=== PATIENT | male | born 1935 | race Caucasian/White ===

== ENCOUNTER → 2019-06-08 | Outpatient (CLI) | payer MEDICARE | END | disposition home or self-care (01) | LOC: CVU 09:19 | PROVIDERS: ATTEND Internal Medicine | DX: J98.11 Atelectasis (principal); J90 Pleural effusion, not elsewhere classified; I25.10 Atherosclerotic heart disease of native coronary artery without angina pectoris; I08.1 Rheumatic disorders of both mitral and tricuspid valves; Z95.1 Presence of aortocoronary bypass graft; Z87.891 Personal history of nicotine dependence | CPT/HCPCS: 78815; 93306; A9552 ==